=== PATIENT | female | born 1955 | race Caucasian/White ===

== ENCOUNTER 2017-10-23 16:53 | Outpatient (CLI) | payer MEDICARE ==
[~2017-10-23] VITALS: Ht 167.6 cm; Wt 69.5 kg
--- NOTE | ~2017-10-23 | OP ---
PATIENT NAME: JANY HARDIN MEDICAL RECORD: [id number] :57 LOCATION:D.OPS ADMISSION DATE: SURGEON: BRUCE JAMES MD DATE OF OPERATION: 10/24/2017 PROCEDURES: Left heart catheterization, selective coronary angiography, right femoral artery approach. CATHETERS: A 5-Tanzanian sheath, 5/4 left and right Tari, 5/4 pig. The procedure was well tolerated. The patient was returned to srivastava, sheath removed. ExoSeal device placed. FINDINGS: Left ventriculography in 30-degree MANZANO view: Normal wall motion, normal systolic function. CORONARY ANATOMY: LEFT MAIN: Left main is free of disease. LAD: Free of disease in diagonal system. CIRCUMFLEX: Free of disease in marginal system. RIGHT CORONARY ARTERY: Has a somewhat elongated 80% stenosis after takeoff of first RV branch. IMPRESSION: Single-vessel disease. PLAN: Intervention momentarily. DESCRIPTION OF PROCEDURE: A 5-Tanzanian sheath was exchanged for a 6-Tanzanian sheath. A JR4 guiding catheter provided good guide catheter support wire this was followed by a 300 cm Whisper wire, which placed across the totally occluded right down this portion of vessel. Stent deployed was a 3.0 x 15 mm Cristo drug-eluting stent up to 14 atmospheres. Final angiography shows excellent resolution of 80% stenosis, no significant residual. STEVAN flow was 3 throughout the procedure. Integrilin was used during the case. Sheath was closed with ExoSeal device. The patient was placed on Plavix. TRANSINT:[id number] Voice Confirmation ID: [id number] DOCUMENT ID: [id number] BRUCE JAMES MD at 1314 CC: [id number] DICTATION DATE: 10/24/17 1246 NATURAL GAS INSPECTOR: 10/24/17 1253 DEP CLI 10/24/17 [place] [id number] [place] [id number]
--- NOTE | ~2017-10-23 | CN ---
PATIENT NAME:JANY HARDIN MEDICAL RECORD: [id number] : 57 [facility] DATE: ACCOUNT: [id number] CONSULTING PHYSICIAN: BRUCE JAMES MD REFERRING PHYSICIAN: BRUCE JAMES MD DATE OF CONSULTATION: HISTORY OF PRESENT ILLNESS: A 62-year-old female with a known history of coronary artery disease, status post intervention via Dr. Ervin curiel in October 2015, has done fairly well since that time. She in the last 2 days had rapidly progressing chest pain with minimal exertion, radiating to the jaw, described as burning, heaviness, and shortness of breath. We were asked to see her concerning cardiovascular status. PAST MEDICAL HISTORY: 1. History of coronary artery disease. 2. Dyslipidemia, statin intolerant. 3. Probably early obstructive pulmonary disease, clinically by today's exam. ALLERGIES: None known. MEDICATIONS: Include Plavix 75 every day, aspirin 81 every day. SOCIAL HISTORY: Lives in the [facility]. She smokes about a pack a day, nondrinker. She takes care of her ADLs. REVIEW OF SYSTEMS: The patient reports easy bruising but reports no swollen glands. The patient reports no fever, no night sweats, no significant weight gain, no significant weight loss. No significant exercise tolerance. The patient reports no dry eyes, no irritation, no vision change. Patient reports no difficulty hearing and no ear pain. Patient reports no frequent nose bleeds or nose and sinus problems. Patient reports on arm pain on exertion. No shortness of breath while lying down. No history of heart murmur. Patient reports no cough, no wheezing or coughing up blood. Patient reports no abdominal pain, no vomiting. Normal appetite. No diarrhea and not vomiting blood. No nausea and no constipation. Patient reports no incontinence. No difficulty urinating. No hematuria. No increased frequency. Patient reports no muscle aches. No weakness, no arthralgias, no back pain. No swelling of the extremities. Patient reports no abnormal mole, no jaundice, no rashes. Reports no loss of consciousness. No weakness and no numbness. No seizures, dizziness, or headaches. The patient reports no depression, no sleep disturbance, feeling safe in a relationship and no alcohol abuse. Patient reports on fatigue. Reports no runny nose or sinus pressure. No itching, no hives, and no frequent sneezing. PHYSICAL EXAMINATION: GENERAL: Pleasant female, no acute distress. VITAL SIGNS: Blood pressure 113/40, pulse 68 and regular. HEENT: Normocephalic, atraumatic. NECK: No JVD or bruit. HEART: Regular, II/ systolic ejection murmur. LUNGS: Prolonged expiratory phase. No active wheezing. ABDOMEN: Soft, nontender. EXTREMITIES: Pulses 2+. There is no edema. NEUROLOGIC: Grossly intact. CONSULT REPORT [id number] JANY HARDIN DIAGNOSTIC DATA: ECG without acute change, incomplete right bundle. IMPRESSION: Progressive angina, known history of coronary artery disease. PLAN: Diagnostic angiography, intervention based on above. TRANSINT:[id number] Voice Confirmation ID: [id number] DOCUMENT ID: [id number] BRUCE JAMES MD at 1314 CC: [id number] DICTATION DATE: 10/24/1724 CASTING REPAIRER: 10/24/17 0910 DEP CLI 10/24/17 [place] [id number] [place] [address]
--- NOTE | ~2017-10-23 | HEMODYNAMI ---
PATIENT:JANY HARDIN MEDICAL RECORD: [id number] : 57 LOCATION:[place] [address] ADMISSION DATE: 10/23/17 Generatedon:10/24/201712:43 Patient name: JANY HARDIN Patient #: [id number] SSN: : 1955 Date of study: 10/24/2017 Page: Of Hemodynamic Procedure Report Patient Data Patient Demographics Procedure consent was obtained First Name: JANY Gender: Female Last Name: LASHAWN : 1955 [facility] Initial: E Age: 62 year(s) Patient #: [id number] Race: Additional ID: [id number] Contact details Address: [address] [place] [address] [facility] State: [place] City: [place] Zip code: [address] Past Medical History History of disease Date Diagnosis Comments Liver disease CAD PVD COPD Allergies: No known allergies Admission Admission Data Admission Date: 10/23/2017 Admission Time: 19:49 Room #: [facility] Procedure Procedure Types Cath Procedure Diagnostic Procedure [facility] w/Coronaries Sedation Charges Moderate Sedation up to 30 minutes PCI Procedure Coronary Stent Coronary Stent Initial Procedure Description Procedure Date Procedure Date: 10/24/2017 Procedure Start Time: 12:25 Procedure End Time: 12:42 Procedure Staff Name Function Jeffrey Martin MD Performing Physician Castillo Patino RT Beam Carrier Hauler Pusher Florina Stratton RT Monitor Leela Finch RT Scrub Butch Spicer RN Nurse Procedure Data Cath Procedure Fluoroscopy Diagnostic fluoroscopy Total fluoroscopy Time: 2.2 time: 2.2 min min Diagnostic fluoroscopy Total fluoroscopy dose: 257 dose: 257 mGy mGy Contrast Material Contrast Material Type Amount (ml) Isovue 300 67 Entry Location Entry Primary Successful Side Size Upsize Upsize Entry Closure Succes sful Closure Location (Fr) 1 (Fr) 2 (Fr) Remarks Device Remarks Femoral Right 5 Fr 6 Fr Exoseal artery Short Estimated blood loss: 10 ml Diagnostic catheters Device Type Used For End Catheter Placement MULTIPACK JL 4.0 5Fr Left Coronary catheter Angiography MULTIPACK 3DRC 5Fr Right Coronary catheter Angiography MULTIPACK Pigtail 5 Fr LV Angiography catheter Procedure Complications No complications Procedure Medications Medication Administration Route Dosage 0.9% NaCl I.V. 100 ml/hr Oxygen etCO2 Nasal cannula 2 l/min Heparin Flush Bag added to field 2 bags (1000units/500ml NS) Lidocaine 2% added to field 20 Versed I.V. 2 mg Fentanyl I.V. 100 mcg Heparin Bolus I.V. 5000 units Hemodynamics Rest Heart Rate: 67 (bpm) Pressure Samples Time Site Value (mmHg) Purpose Heart Use Rate(bpm) 12:30 LV 107/4,8 Snapshot 70 12:31 AO 103/52(80) Pullback 68 12:31 LV 106/8,10 Pullback 68 Gradients Valve Time Site 1 Site 2 Mean SEP/DFP Peak To Heart Use (mmHg) (sec/min) Peak Rate (mmHg) (bpm) Aortic 12:31 LV AO 5 7 3 68 106/8,10 103/52(80) Calculations Valve P-P Mean Valve Index Valve Source Name Gradient Area Flow (cm2) Aortic 3 5 3 5 Snapshots Pre Cath Intra NCS Post Cath Vital Signs Time Heart Resp SPO2 etCO2 NIBP Rhythm Pain Sedation Rate (ipm) (%) (mmHg) (mmHg) Status Level (bpm) 12:00:59 73 16 98 0 117/74(90) NSR 0 (11) 10(A) , No pain 12:05:33 71 17 100 31.5 103/62(77) NSR 0 (11) 10(A) , No pain 12:10:06 65 14 100 9.7 96/58(70) NSR 0 (11) 10(A) , No pain 12:14:36 66 14 100 9.7 99/59(70) NSR 0 (11) 10(A) , No pain 12:19:06 63 12 99 3.7 103/59(78) NSR 0 (11) 10(A) , No pain 12:23:37 65 13 99 3 103/63(73) NSR 0 (11) 10(A) , No pain 12:28:07 68 18 98 0.7 104/65(76) NSR 0 (11) 9(A) , No pain 12:32:37 70 20 98 0 110/70(82) NSR 0 (11) 9(A) , No pain 12:37:08 72 16 98 33.8 109/70(83) NSR 0 (11) 10(A) , No pain 12:41:38 75 19 99 30 111/72(82) NSR 0 (11) 10(A) , No pain Medications Time Medication Route Dose Verified Delivered Reason Notes Effectiveness by by 12:02:07 0.9% NaCl I.V. 100 Butch Butch Per physician ml/hr Dannielle Spicer RN RN 12:02:17 Oxygen etCO2 2 Butch Butch Per physician Nasal l/min Dannielle Spicer cannula RN RN 12:02:27 Heparin Flush added 2 Butch Butch used for Bag to bags Dannielle Spicer procedure (1000units/500ml RN RN NS) 12:02:38 Lidocaine 2% added 20ml Butch Butch for local to vial Dannielle Spicer anesthetic field HERNÁNDEZ RN 12:07:56 Versed I.V. 2 mg Butch Butch for sedation Dannielle Spicer RN RN 12:08:04 Fentanyl I.V. 100 Butch Butch for sedation mcg Dannielle Spicer RN RN 12:32:30 Heparin Bolus I.V. 5000 Butch Butch for units Dannielle Spicer anticoagulation RN rn dermatology Log Time Note 11:45:48 Castillo Patino RT(R) sent for patient. Start room use. 11:54:13 Time tracking: Regular hours (M-F 7:00 - 5:00) 11:54:17 Plan of Care:Hemodynamics will remain stable., Cardiac rhythm will remain stable., Comfort level will be maintained., Respiratory function will remain adequate., Patient/ family verbilizes understanding of procedure., Procedure tolerated without complication., Recovers from procedure without complications.. 11:54:23 Patient received from PCU to CCL 1 Alert and oriented. Tansferred to table in Supine position. 11:54:24 Warm blankets applied, and sonia hugger turned on for patient comfort. 11:54:24 Correct patient and procedure confirmed by team. 11:54:26 Signed procedure consent form obtained from patient. 11:54:26 ECG and BP/O2 sat monitors applied to patient. 11:54:27 Full Disclosure recording started 12:00:07 Vital chart was started 12:00:10 Rhythm: sinus rhythm 12:01:47 H&P Date Dictated: 10/23/2017 Within 30 days and on chart., H&P Addendum completed by physician on day of procedure. (MUST COMPLETE FOR ALL OUTPATIENTS). 12:01:48 Pre-procedure instructions explained to patient. 12:01:49 Pre-op teaching completed and patient verbalized understanding. 12:01:50 Family in patients room. 12:01:52 Patient NPO since Midnight. 12:01:58 Patient allergic to No known allergies 12:02:00 Is the patient allergic to Iodine/contrast media? No. 12:02:02 Is patient on blood thinner?No 12:02:04 Patient diabetic? No. 12:02:07 0.9% NaCl 100 ml/hr I.V. was administered by Butch Spicer RN; Per physician; 12:02:12 Previous problem with sedation/anesthesia? No ? 12:02:13 Snore? Yes 12:02:13 Sleep apnea? No 12:02:14 Deviated septum? No 12:02:15 Opens mouth fully? Yes 12:02:16 Sticks out tongue? Yes 12:02:17 Oxygen 2 l/min etCO2 Nasal cannula was administered by Butch Spicer RN; Per physician; 12:02:17 Airway obstruction? No ? 12:02:20 Dentures? Yes IN 12:02:23 Pre procedure: right dorsailis pedis pulse 2+ Normal; easily identifiable; not easily obliterated 12:02:27 Heparin Flush Bag (1000units/500ml NS) 2 bags added to field was administered by Butch Spicer RN; used for procedure; 12:02:27 Patient pain scale 0/10 ?. 12:02:32 IV patent on arrival in right wrist with 0.9% NaCl at [facility]. 12:02:35 Lab results completed and on chart. 12:02:37 Right groin area was prepped with chlora-prep and draped in sterile fashion 12:02:38 Lidocaine 2% 20ml vial added to field was administered by Butch Spicer RN; for local anesthetic; 12:02:38 Alarms reviewed by R. N. 12:02:38 Sharps counted by scrub and verified by R.N. 12:02:41 Final Timeout: patient, procedure, and site verified with staff and physician. All members of the team are in agreement. 12:02:43 Right groin site verified by team. 12:02:45 Physical assessment completed. ASA score P 2 - A patient with mild systemic disease as per Jeffrey Martin MD. 12:02:48 Sedation plan: IV Moderate Sedation Medication:Versed, Fentanyl 12:06:21 Use device set Femoral Dx 12:06:22 ACIST Syringe (79654) opened to sterile field. 12:06:23 Bag Decanter (2002S) opened to sterile field. 12:06:23 Medline Cath Pack ([id number]) opened to sterile field. 12:06:24 DIAGNOSTIC WIRE .035 260cm J wire ([id number]) opened to sterile field. 12:06:25 ACIST Hand Control (40032) opened to sterile field. 12:06:26 ACIST Manifold (42375) opened to sterile field. 12:06:26 DIAGNOSTIC Multipack 5Fr catheter set ([id number]) opened to sterile field. 12:06:27 Tegaderm 4 x 4 (1626W) opened to sterile field. 12:06:28 SHEATH Prelude 5Fr 0.035 (VFK-7F-92-035) opened to sterile field. 12:07:56 Versed 2 mg I.V. was administered by Butch Spicer RN; for sedation; 12:08:04 Fentanyl 100 mcg I.V. was administered by Butch Spicer RN; for sedation; 12:09:09 Zero performed for pressure channel P1 12:14:36 Baseline sample Acquired. 12:24:51 Procedure started. 12:25:12 Local anesthetic to right femoral artery with Lidocaine 2% by Jeffrey Martin MD.INITIAL ACCESS ONLY 12:25:52 A 5 Fr sheath was inserted into the Right Femoral artery 12:26:03 A MULTIPACK JL 4.0 5Fr catheter was advanced over the wire and used for Left Coronary Angiography. 12:27:31 Catheter removed. 12:27:38 A MULTIPACK 3DRC 5Fr catheter was advanced over the wire and used for Right Coronary Angiography. 12:29:11 Catheter removed. 12:29:33 A MULTIPACK Pigtail 5 Fr catheter was advanced over the wire and used for LV Angiography. 12:30:39 LV gram done using MANZANO 12:30:44 EF : 60 % 12:30:47 Injector settings: Ml/sec: 10, Volume: 20, 12:30:56 Catheter removed. 12:31:01 Use device set JACOB PCI 12:31:11 SHEATH Prelude 6Fr 0.035 (FBZ-2P-64-035) opened to sterile field. 12:31:15 INFLATOR Merit BasixCompak (XG2524) opened to sterile field. 12:31:16 WHISPER 300cm guide wire ([id number]) opened to sterile field. 12:31:51 Sheath upsized to a 6 Fr Short. 12:32:13 6 Fr HS I guide catheter was inserted over the wire 12:32:18 GUIDE 6FR HS I catheter (LA6HSI) opened to sterile field. 12:32:30 Heparin Bolus 5000 units I.V. was administered by Butch Spicer RN; for anticoagulation; 12:35:23 Whisper wire advanced. 12:38:04 Place stent Inflation Number: 1 A LORRIE RX 3.0 x 15 stent ([id number]) was prepped and advanced across the Mid RCA. The stent was deployed at 14 NANCY for 0:27 (min:sec). 12:38:29 Stent catheter was removed intact over wire. 12:38:30 Wire removed. 12:38:30 Guide catheter removed. 12:38:38 Sheath removed intact; hemostasis achieved with Exoseal to the Right Femoral artery. 12:38:41 EXOSEAL 6Fr (EX600) opened to sterile field. 12:38:44 Procedure ended.(Physican Out) 12:39:33 Fluoroscopy time 02.20 minutes. 12:39:37 Flurop Dose total: 257 12:39:37 Fluoroscopy dose: 257 mGy 12:39:41 Contrast amount:Isovue 300 67ml. 12:39:43 Sharps counted by scrub and verified by R.N. 12:39:46 Insertion/operative site no bleeding no hematoma. 12:39:50 Post-op/insertion site Right Femoral artery dressed using a 4 x 4 and Tegaderm. 12:39:53 Post right femoral artery:stable, clean and dry 12:39:56 Post Procedure Pulses reassessed and unchanged 12:39:59 Post-procedure physical assessment completed. ASA score P 2 - A patient with mild systemic disease as per Jeffrey Martin MD. 12:40:01 Post procedure rhythm: unchanged. 12:40:03 Estimated blood loss: 10 ml 12:40:05 Post procedure instruction explained to patient.Patient verbalizes understanding. 12:40:05 Patient needs reinforcement of post procedure teaching. 12:40:23 Procedure type changed to Cath procedure, Diagnostic procedure, LHC, LHC w/Coronaries, Sedation Charges, Moderate Sedation up to 30 minutes, PCI procedure, Coronary Stent, Coronary Stent Initial 12:40:50 Procedure Complication : No complications 12:40:52 See physician's report for complete and final results. 12:41:12 Procedure and supply charges have been captured, reviewed, submitted and are correct. 12:42:41 Vital chart was stopped 12:42:43 Report given to Pre/Post Procedure Room. 12:42:45 Patient transfered to Pre/Post Procedure Room with Stretcher. 12:42:50 Procedure ended. 12:42:50 Full Disclosure recording stopped 12:42:54 End room use (Document Last) Intervention Summary Intervention Notes Time ActionType Lesion and Equipment Used Action# Pressure Duration Attributes 12:38:04 Place stent Mid RCA LORRIE RX 3.0 x 1 14 00:27 15 stent ([id number]) Device Usage Item Name Manufacture Quantity Catalog Number Hospital Part Current Minimal Lot# / Charge Number Stock Stock Serial# Code ACIST Syringe Acist 1 24405 227378 354143 [id number] 20 (46192) Medical Systems Inc Bag Decanter Microtek 1 2001S 048700 14921 853205 5 (2001S) Medical Inc. Medline Cath Cardinal 1 [id number] 005549 01501 309293 5 Pack Health ([id number]) DIAGNOSTIC WIRE St Franco 1 122785 663811 416505 621220 30 .035 260cm J wire (868194) ACIST Hand Acist 1 13720 108887 592284 371552 5 Control (40691) Medical [employer] Inc ACIST Manifold Acist 1 27804 737646 146440 939309 5 (98866) Medical Systems Inc DIAGNOSTIC Cardinal 1 LO7368 238621 59190 980596 30 Multipack 5Fr Health catheter set ([id number]) Tegaderm 4 x 4 3M 1 1626W 296588 411672 781576 5 (1626W) SHEATH Prelude Merit 1 [id number]-[id number] 523378 135465 581291 5 5Fr 0.035 Medical (UHI-6M-23-035) MULTIPACK JL Cardinal 1 589562 5 4.0 5Fr Health catheter MULTIPACK 3DRC Cardinal 1 306666 5 5Fr catheter Health MULTIPACK Cardinal 1 235458 5 Pigtail 5 Fr Health catheter SHEATH Prelude Merit 1 DJJ-[id number]-[id number] 238176 2016701 693031 5 6Fr 0.035 Medical (JUY-8Y-45-035) INFLATOR Merit Merit 1 JL6873 992670 759292 252918 15 BasixComflk Medical ([id number]) WHISPER 300cm Smith 1 [id number] 273022 841766 604631 5 guide wire Vascular ([id number]) GUIDE 6FR HS I Medtronic 1 LA6HSI 577896 09657 235414 1 catheter (LA6HSI) LORRIE RX 3.0 x Medtronic 1 [id number] 043699 6202167 034096 5 [id number] 15 stent ([id number]) EXOSEAL 6Fr Cardinal 1 EX600 219448 436193 076032 10 (EX600) Health Signature Audit Randolph Stage Time Signature Unsigned Intra-Procedure 10/24/2017 Florina 12:43:04 PM Counts RT(R) Signatures Monitor : Florina Signature : Counts RT Date : Time : [place] [id number] [place] [address]
[~2017-10-23 16:53] MED LIST: BAYER CHEWABLE81 MG PO; CELEXA20 MG PO; LIPITOR40 MG PO; PLAVIX75 MG PO; WELLBUTRIN SR150 MG PO
[2017-10-23 17:20] LABS: BASOPHILS 0.4 % (0-2); EOSINOPHILS 1.8 % (0-7); HEMATOCRIT 44.2 % (36.0-48.0); HEMOGLOBIN 15.2 g/dL (12-16); IMMATURE GRANULOCYTES 0.2 % (0-5); LYMPHOCYTES 35.8 % (15-50); MCH 30.8 pg (26.0-34.0); MCHC 34.4 g/dL (31.0-37.0); MCV 89.5 fL (80.0-100.0); MEAN PLATELET VOLUME 9.7 fL (7.4-10.4); MONOCYTES 9.2 % (2-11); NEUTROPHILS 52.6 % (40-80); RBC 4.94 10x6/uL (4.00-5.40); RDW 13.1 % (11.5-14.5); WBC 8.3 10x3/uL (4.8-10.8)
[2017-10-23 17:23] LABS: PLATELET COUNT 260 10x3/uL (130-400)
[2017-10-23 18:03] LABS: ALBUMIN 3.2 g/dL (3.4-5.0); ALKALINE PHOSPHATASE 62 U/L (46-116); ALT (SGPT) 36 U/L (10-68); BILIRUBIN - TOTAL 0.28 mg/dL (0.2-1.3); CALC OSMOLALITY 280 mosm/kg (275-300); CALCIUM 9.1 mg/dL (8.5-10.1); CARBON DIOXIDE 27.7 mmol/L (21.0-32.0); CHLORIDE - SERUM 106 mmol/L (98-107); CREATININE - SERUM 0.7 mg/dL (0.6-1.3); GLUCOSE 128 mg/dL (74-106); PROTEIN - SERUM 7.1 g/dL (6.4-8.2); SODIUM 140 mmol/L (136-145); UREA NITROGEN 13 mg/dL (7-18); eGFR NON AFRICAN AMERICAN 90 mL/min (90-120)
[2017-10-23 18:21] LABS: CKMB 0.5 U/L (0.0-3.6); CREATINE KINASE 47 UL (21-215); PRO BNP 38 pg/mL (0-125)
[2017-10-23 18:25] LABS: TROPONIN-I < 0.017 ng/mL (0.000-0.060)
[2017-10-23 20:22] LABS: CREATINE KINASE 44 UL (21-215); TROPONIN-I < 0.017 ng/mL (0.000-0.060)
[2017-10-23 21:24] VITALS: BP 111/68; BMI 21.0
[2017-10-24 01:11] VITALS: BP 142/65
[2017-10-24 01:35] LABS: CKMB 0.6 U/L (0.0-3.6); CREATINE KINASE 50 UL (21-215)
[2017-10-24 01:36] LABS: TROPONIN-I < 0.017 ng/mL (0.000-0.060)
[2017-10-24 05:18] LABS: BASOPHILS 0.5 % (0-2); EOSINOPHILS 1.7 % (0-7); HEMATOCRIT 43.9 % (36.0-48.0); IMMATURE GRANULOCYTES 0.3 % (0-5); LYMPHOCYTES 36.5 % (15-50); MCH 30.5 pg (26.0-34.0); MCHC 34.2 g/dL (31.0-37.0); MCV 89.4 fL (80.0-100.0); MEAN PLATELET VOLUME 9.6 fL (7.4-10.4); MONOCYTES 9.8 % (2-11); NEUTROPHILS 51.2 % (40-80); RBC 4.91 10x6/uL (4.00-5.40); RDW 13.1 % (11.5-14.5); WBC 6.4 10x3/uL (4.8-10.8)
[2017-10-24 05:31] LABS: PLATELET COUNT 205 10x3/uL (130-400)
[2017-10-24 05:52] VITALS: BP 113/40
[2017-10-24 05:54] LABS: ALBUMIN 3.1 g/dL (3.4-5.0); ALKALINE PHOSPHATASE 62 U/L (46-116); ALT (SGPT) 34 U/L (10-68); BILIRUBIN - TOTAL 0.39 mg/dL (0.2-1.3); CALC OSMOLALITY 277 mosm/kg (275-300); CALCIUM 8.4 mg/dL (8.5-10.1); CARBON DIOXIDE 25.1 mmol/L (21.0-32.0); CHLORIDE - SERUM 106 mmol/L (98-107); CREATININE - SERUM 0.7 mg/dL (0.6-1.3); GLUCOSE 93 mg/dL (74-106); POTASSIUM - SERUM 4.3 mmol/L (3.5-5.1); PROTEIN - SERUM 6.8 g/dL (6.4-8.2); SODIUM 139 mmol/L (136-145); UREA NITROGEN 12 mg/dL (7-18); eGFR NON AFRICAN AMERICAN 90 mL/min (90-120)
[2017-10-24 07:47] LABS: CKMB 0.5 U/L (0.0-3.6); CREATINE KINASE 71 UL (21-215)
[2017-10-24 07:52] LABS: TROPONIN-I < 0.017 ng/mL (0.000-0.060)
[2017-10-24 07:59] VITALS: BP 93/74
[2017-10-24 11:03] VITALS: BP 102/45
[2017-10-24 11:20] VITALS: Ht 167.6 cm; Wt 69.5 kg
[2017-10-24 12:06] VITALS: BP 102/45
== END 2017-10-24 16:31 | disposition home or self-care (01) ==
LOC: D.ER 16:53 → D.OPS 16:53 → D.ER 19:49 → D.M2 19:49 → D.CLR 19:49 → D.ER 20:58 → EDSTATUS 10-24 09:00 → D.CLR 10-24 13:50 → D.M2 10-24 13:50 → D.OPS 10-24 16:31 → D.CLR 10-24 16:31
PROVIDERS: Family Medicine
DX: I25.119 Atherosclerotic heart disease of native coronary artery with unspecified angina pectoris (principal); E78.5 Hyperlipidemia, unspecified; J44.9 Chronic obstructive pulmonary disease, unspecified
CPT/HCPCS: 93458; C9600

== ENCOUNTER 2019-02-13 13:15 | Emergency (ER) | payer MEDICARE ==
[~2019-02-13] VITALS: Ht 167.6 cm; Wt 59.1 kg
[2019-02-13 13:24] VITALS: Ht 167.6 cm; Wt 59.1 kg
[2019-02-13 13:56] LABS: APPEARANCE CLEAR (CLEAR); BILIRUBIN NEGATIVE (NEGATIVE); COLOR YELLOW (YELLOW); GLUCOSE NEGATIVE (NEGATIVE); KETONE NEGATIVE (NEGATIVE); NITRITE NEGATIVE (NEGATIVE); PROTEIN NEGATIVE (NEGATIVE); SPECIFIC GRAVITY 1.015 (1.005-1.020); UROBILINOGEN NORMAL (NORMAL)
[2019-02-13 13:59] LABS: BASOPHILS 0.5 % (0-2); EOSINOPHILS 2.6 % (0-7); HEMATOCRIT 41.7 % (36.0-48.0); IMMATURE GRANULOCYTES 0.2 % (0-5); LYMPHOCYTES 39.6 % (15-50); MCH 30.6 pg (26.0-34.0); MCHC 33.6 g/dL (31.0-37.0); MEAN PLATELET VOLUME 9.5 fL (7.4-10.4); NEUTROPHILS 49.1 % (40-80); PLATELET COUNT 236 10x3/uL (130-400); RBC 4.58 10x6/uL (4.00-5.40); RDW 12.9 % (11.5-14.5); WBC 6.6 10x3/uL (4.8-10.8)
[2019-02-13 14:18] LABS: CALC OSMOLALITY 281 mosm/kg (275-300); CARBON DIOXIDE 28.3 mmol/L (21.0-32.0); CHLORIDE - SERUM 106 mmol/L (98-107); CREATININE - SERUM 0.8 mg/dL (0.6-1.3); GLUCOSE 87 mg/dL (74-106); POTASSIUM - SERUM 4.5 mmol/L (3.5-5.1); SODIUM 142 mmol/L (136-145); UREA NITROGEN 13 mg/dL (7-18); eGFR NON AFRICAN AMERICAN 77 mL/min (90-120)
[2019-02-13 14:27] LABS: ALBUMIN 3.9 g/dL (3.4-5.0); ALKALINE PHOSPHATASE 76 U/L (46-116); ALT (SGPT) 31 U/L (10-68); AMYLASE - SERUM 57 U/L (25-115); BILIRUBIN - TOTAL 0.32 mg/dL (0.2-1.3); LIPASE 122 U/L (73-393); PROTEIN - SERUM 7.7 g/dL (6.4-8.2); TROPONIN-I < 0.017 ng/mL (0.000-0.060)
[2019-02-13] MEDS ORDERED: BENTYL 20 MG TA20 MG PO (15:44)
[2019-02-13] MEDS ORDERED: MIRALAX17 GM PO (15:44)
[2019-02-13 16:26] VITALS: BP 148/77
== END 2019-02-13 16:26 | disposition home or self-care (01) ==
LOC: D.ER 13:15
PROVIDERS: Family Medicine
DX: K59.00 Constipation, unspecified (principal); R10.84 Generalized abdominal pain; I25.2 Old myocardial infarction; B15.9 Hepatitis A without hepatic coma; J44.9 Chronic obstructive pulmonary disease, unspecified

== ENCOUNTER → 2019-06-23 08:08 | Outpatient (CLI) | payer MEDICARE ==
[2019-02-13 13:24] VITALS: BMI 21.0
[~2019-06-23 08:08] MED LIST changes: +BENTYL 20 MG TA20 MG PO; +MIRALAX17 GM PO
== END | disposition home or self-care (01) ==
LOC: D.HCCECHO 08:08 → D.HCCARDIO 09:00
PROVIDERS: ATTEND Internal Medicine Cardiovascular Disease
DX: R06.09 Other forms of dyspnea (principal)

== ENCOUNTER 2019-10-23 18:13 | Emergency (ER) | payer MEDICAID ==
[~2019-10-23] VITALS: Ht 167.6 cm; Wt 54.5 kg
[2019-10-23 18:17] VITALS: Ht 167.6 cm; Wt 54.5 kg
[2019-10-23 19:03] LABS: BASOPHILS 0.5 % (0-2); EOSINOPHILS 1.4 % (0-7); HEMATOCRIT 45.6 % (36.0-48.0); HEMOGLOBIN 15.1 g/dL (12-16); IMMATURE GRANULOCYTES 0.1 % (0-5); LYMPHOCYTES 27.8 % (15-50); MCH 29.9 pg (26.0-34.0); MCHC 33.1 g/dL (31.0-37.0); MCV 90.3 fL (80.0-100.0); MEAN PLATELET VOLUME 9.5 fL (7.4-10.4); MONOCYTES 9.3 % (2-11); NEUTROPHILS 60.9 % (40-80); PLATELET COUNT 205 10x3/uL (130-400); RBC 5.05 10x6/uL (4.00-5.40); RDW 13.6 % (11.5-14.5); WBC 8.5 10x3/uL (4.8-10.8)
[2019-10-23 19:19] LABS: CALC OSMOLALITY 277 mosm/kg (275-300); CALCIUM 9.3 mg/dL (8.5-10.1); CARBON DIOXIDE 29.5 mmol/L (21.0-32.0); CHLORIDE - SERUM 105 mmol/L (98-107); CREATININE - SERUM 0.7 mg/dL (0.6-1.3); GLUCOSE 93 mg/dL (74-106); POTASSIUM - SERUM 4.4 mmol/L (3.5-5.1); SODIUM 140 mmol/L (136-145); UREA NITROGEN 10 mg/dL (7-18); eGFR NON AFRICAN AMERICAN 90 mL/min (90-120)
[2019-10-23 19:23] LABS: ALBUMIN 3.6 g/dL (3.4-5.0); ALKALINE PHOSPHATASE 71 U/L (30-120); ALT (SGPT) 36 U/L (10-68); C-REACTIVE PROTEIN 0.3 mg/dL (0.0-0.9); PROTEIN - SERUM 7.7 g/dL (6.4-8.2)
[2019-10-23] MEDS ORDERED: PREDNISONE20 MG PO (20:13)
[2019-10-23] MEDS ORDERED: ZANAFLEX4 MG PO (20:13)
[2019-10-23] MEDS ORDERED: DICLOFENAC SODI50 MG PO (20:13)
[2019-10-23 20:20] VITALS: BP 122/76
== END 2019-10-23 20:21 | disposition home or self-care (01) ==
LOC: D.ER 18:13
PROVIDERS: Family Medicine
DX: M54.16 Radiculopathy, lumbar region (principal); M54.5 Low back pain; R53.1 Weakness; J44.9 Chronic obstructive pulmonary disease, unspecified; I25.2 Old myocardial infarction; Z86.73 Personal history of transient ischemic attack (TIA), and cerebral infarction without residual deficits; G62.9 Polyneuropathy, unspecified; Z72.0 Tobacco use